=== PATIENT | male | born 1950 | race Caucasian/White ===

== ENCOUNTER → 2020-06-15 | Outpatient (CLI) | payer OTHER ==
[~2020-06-15] MED LIST: AMLODIPINE BESY10 MG PO; APAP500 PO; ASPIRIN325 PO; AUGMENTIN 875-1 EACH PO; AUGMENTIN 875875 M1 PO; CARVEDILOL12.5 MG PO; COQ10 SG 100 S1 EACH PO; CRESTOR20 MG PO; ERYTHROMYCIN E3.5 G2 TOP; FISH OIL 1,0001 EAC8 PO; FLAX SEED OIL1000 MG PO; GLUCOSAMINE HC500 MG PO; LORTAB 5-500 T1 EAC1 PO; MILK THISTLE200 M1 PO; MSM500 MG PO; MULTIVITAMINS1 EAC7 PO; NEXIUM40 MG PO; NIASPAN ER 101000 M1 PO; PHENERGAN50 MG RECTAL; VITAMINC500 PO
== END ==
LOC: LAB 13:44
PROVIDERS: ATTEND Anesthesiology
DX: Z20.828 Contact with and (suspected) exposure to other viral communicable diseases (principal)